=== PATIENT | female | born 1995 | race Caucasian/White ===

== ENCOUNTER 2023-03-31 08:12 | Emergency (ER) | payer OTHER ==
[2023-03-31 08:42] VITALS: BP 125/90
[2023-03-31 09:03] LABS: GLUCOSE, URINE (UA) NEGATIVE (NEGATIVE); KETONES,URINE (UA) NEGATIVE (NEGATIVE); LEUKOCYTE ESTERASE, URINE NEGATIVE (NEGATIVE); NITRITE,URINE NEGATIVE (NEGATIVE); OCCULT BLOOD,URINE NEGATIVE (NEGATIVE); PH,URINE 5.5 PH (5.0-7.5); PROTEIN,URINE TRACE mg/dL (NEGATIVE); UROBILINOGEN,URINE 0.2 (NORMAL) E.U./dL (NORMAL)
[2023-03-31 09:06] LABS: BILIRUBIN,URINE SMALL (NEGATIVE); CLARITY,URINE CLEAR (CLEAR); ICTOTEST,URINE POSITIVE
[2023-03-31 09:08] LABS: HCG UR QUAL NEGATIVE
[2023-03-31 09:17] LABS: BASOPHILS % (AUTO) 0.7 %; EOSINOPHILS # (AUTO) 0.1 10^3/uL (0.0-0.7); EOSINOPHILS % (AUTO) 2.5 %; HCT - HEMATOCRIT 45.6 % (37.0-47.0); HGB - HEMOGLOBIN 15.5 g/dL (12.0-16.0); LYMPHOCYTES # (AUTO) 1.3 10^3/uL (1.5-3.5); LYMPHOCYTES % (AUTO) 23.9 %; MONOCYTES # (AUTO) 0.5 10^3/uL (0.0-1.0); MONOCYTES % (AUTO) 8.5 %; NEUTROPHILS # (AUTO) 3.5 10^3/uL (1.5-6.6); PLT - PLATELET COUNT 303 10^3/uL (130-450); RED BLOOD COUNT 4.85 10^6/uL (4.20-5.40); RED CELL DISTRIBUTION WIDTH 11.6 % (12.0-15.0); WHITE BLOOD COUNT 5.5 x10^3/uL (4.8-10.8)
[2023-03-31 09:31] LABS: BILIRUBIN,TOTAL 1.9 mg/dL (0.2-1.0); CALCIUM 8.6 mg/dL (8.5-10.3); CREATININE 0.8 mg/dL (0.4-1.0); POTASSIUM 3.8 mmol/L (3.5-5.0); TOTAL PROTEIN 8.1 g/dL (6.7-8.2)
--- NOTE | 2023-03-31 09:32 | ED Physician Documentation ---
History of Present Illness - Stated complaint Stated Complaint: ABD PX - Chief complaint Chief Complaint: Abd Pain - History obtained from History obtained from: Patient - Additonal information Additional information: The patient comes to the emergency department chief complaint of right upper quadrant abdominal pain that started yesterday and back pain that started today. The patient states that she was nauseated earlier but denies vomiting. No urinary symptoms and no changes in her bowel habits. No fevers or chills. No respiratory symptoms. The patient states she is a chronic alcoholic and that she has had this kind of pain before after drinking a lot. The patient states she had a particularly heavy day of drinking yesterday and that while she had some pain before the drinking, it was worse after. She states it feels very similar to prior episodes. PD PAST MEDICAL HISTORY - Present Medications Home Medications: Ambulatory Orders Medication Instructions Recorded Confirmed Norethindrone-Ethin. Estradiol 1 each PO DAILY 03/31/23 03/31/23 [Nortrel 1-35 28 Tablet] Venlafaxine ER [Effexor ER] 75 mg PO DAILY 03/31/23 03/31/23 - Allergies Allergies/Adverse Reactions: Allergies Allergy/AdvReac Type Severity Reaction Status Date / Time No Known Drug Allergies Allergy Verified 03/31/23 08:27 PD ED PE NORMAL - Vitals Vital signs reviewed: Yes - General General: Alert and oriented X 3, No acute distress, Well developed/nourished - HEENT HEENT: Atraumatic, PERRL, EOMI, Moist mucous membranes - Neck Neck: Supple, no meningeal sign - Cardiac Cardiac: RRR, No murmur - Respiratory Respiratory: No respiratory distress, Clear bilaterally - Abdomen Abdomen: Soft, Non tender, Non distended - Derm Derm: Warm and dry - Extremities Extremities: No deformity - Neuro Neuro: Alert and oriented X 3 - Psych Psych: Normal mood, Normal affect Results - Vitals Vitals: Vital Signs - 24 hr 03/31/23 08:28 Temperature 36.6 C Heart Rate 88 Respiratory 16 Rate Blood Pressure 125/90 H O2 Saturation 97 Oxygen O2 Source Room air - Labs Labs: Laboratory Tests 03/31/23 03/31/23 03/31/23 08:49 09:05 09:05 WBC 5.5 RBC 4.85 Hgb 15.5 Hct 45.6 MCV 94.0 MCH 32.0 H MCHC 34.0 RDW 11.6 L Plt Count 303 MPV 10.0 Neut # (Auto) 3.5 Lymph # (Auto) 1.3 L [place] # (Auto) 0.5 Eos # (Auto) 0.1 Baso # (Auto) 0.0 Absolute Nucleated RBC 0.00 Nucleated RBC % 0.0 Sodium 135 Potassium 3.8 Chloride 103 Carbon Dioxide 23 Anion Gap 9.0 BUN 13 Creatinine 0.8 Estimated GFR (MDRD) 87 L Glucose 123 H Calcium 8.6 Total Bilirubin 1.9 H AST 540 H ALT 377 H Alkaline Phosphatase 65 Total Protein 8.1 Albumin 4.0 Globulin 4.1 Albumin/Globulin Ratio 1.0 Lipase 26 Urine Color DARK YELLOW Urine Clarity CLEAR Urine pH 5.5 Ur Specific [place] 1.025 Urine Protein TRACE Urine Glucose (UA) NEGATIVE Urine Ketones NEGATIVE Urine Occult Blood NEGATIVE Urine Nitrite NEGATIVE Urine Bilirubin SMALL H Urine Urobilinogen 0.2 (NORMAL) Ur Leukocyte Esterase NEGATIVE Ur Microscopic Review NOT INDICATED Urine Culture Comments NOT INDICATED Urine HCG, Qual NEGATIVE PD Medical Decision Making - ED course Complexity details: reviewed results, re-evaluated patient, considered differential, d/w patient ED course: The patient by the time of evaluation in the emergency department was feeling quite a bit better. Her abdomen was soft and nontender. Her laboratory studies did show elevated LFTs but normal lipase. I offered the patient an ultrasound to look at her gallbladder, but she stated that she felt quite a bit better and did not wish to stay for this. She is already Aware of the gallstones and states that if it feels like things are getting worse, she will get reevaluated and consider ultrasound then. Patient stable for discharge home. As she is no longer in pain and is not having tenderness at this time in her right upper quadrant, I feel it is reasonable to forego ultrasound the patient does not wish to get it. We have discussed the usual indications for follow-up and return. Departure - Departure Disposition: 01 Home, Self Care Clinical Impression: Alcoholic liver disease Abdominal pain Qualifiers: Abdominal location: right upper quadrant Qualified Code(s): R10.11 - Right upper quadrant pain Condition: Stable Instructions: ED Abdominal Pain Female Non-Specific Abdominal Pain Comments: Your liver enzymes are elevated today. We do not have any comparison values, so it is difficult to know what your baseline is or how high your liver enzymes have gone before. With your history of alcoholic liver inflammation previously, it is possible that your recent round of heavy drinking caused this flareup as well. However, given that you have gallstones, there is also some degree of concern that your gallbladder is to blame for the elevated labs. At this point in time, you have opted not to have your gallbladder reimaged. This is reasonable since you do not have any pain or tenderness in the area currently and your pancreatic enzymes are normal. However, if you begin to notice increasingly severe pain in your right upper quadrant, then you will need to return to the emergency department to have an ultrasound done to get a look at your gallbladder and make sure it is not obstructed or inflamed. Otherwise, please follow-up with your primary doctor for further care. Please consider getting help with your drinking to prevent further health problems, as well. Discharge Date/Time: 03/31/23 10:48
== END 2023-03-31 10:48 | disposition home or self-care (01) ==
LOC: ED 08:12
DX: R10.11 Right upper quadrant pain (principal); K70.9 Alcoholic liver disease, unspecified; R74.01 Elevation of levels of liver transaminase levels
CPT/HCPCS: 36415; 80053; 81001; 81003; 81025; 83690; 85025; 87086; 99283